=== PATIENT | female | born 1975 | race Caucasian/White ===

== ENCOUNTER 2021-06-13 17:39 | Emergency (ER) | payer BC, SELFPAY ==
[2021-06-13] VITALS (7 sets, daily range): BP systolic 110–164; BP diastolic 75–119; PULSE 104–127; RESP 16–22; TEMP 36.8; O2SAT 98–100; BMI 29.2
--- NOTE | 2021-06-13 18:18 | ECG_ITS ---
[facility] Test Date: 2021-06-13 Pat Name: Cassi Castillo Department: Room: Gender: Female Safety Director: : 1975 Requested By: Neo Laurent Order Number: [id number] Borges MD: Eli Terry M.D. Measurements Intervals [address] Rate: 121 P: 52 CA: 170 QRS: 64 QRSD: 85 T: 49 QT: 298 QTc: 423 Interpretive Statements SINUS TACHYCARDIA ABNORMAL RHYTHM ECG No previous ECG available for comparison Electronically Signed On 06-14-2021 17:26:08 CDT by Eli Terry M.D. [email or web address].[id number]
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
[2021-06-13] MEDS: sodium chloride 0.9% 1,000 ML 999 ML IV (18:55)
[2021-06-13 18:58] LABS: Basophils # 0.1 10^3/uL (0.0-0.1); Basophils % 0.7 %; Eosinophils # 0.1 10^3/uL (0.0-0.8); Eosinophils % 0.7 %; Hematocrit 40.7 % (37.0-47.0); Hemoglobin 13.3 g/dL (11.5-15.3); Lymphocytes # 2.3 10^3/uL (0.8-4.8); Lymphocytes % 21.8 %; Mean Corpuscular HGB Conc 32.7 g/dL (30.0-36.0); Mean Corpuscular Hemoglobin 29.8 pg (28.0-34.0); Mean Corpuscular Volume 91.1 fl (81-99); Mean Platelet Volume 9.9 fL (7.4-10.4); Monocytes # 0.7 10^3/uL (0.2-0.9); Monocytes % 7.2 %; Neutrophils # 7.13 10^3/uL (1.8-7.7); Nucleated Red Blood Cells % 0 %; Platelet Count 370 10^3/cmm (130-400); Red Blood Count 4.47 10^6/uL (4.1-5.3); Red Cell Distribution Width 13.5 % (12.1-15.1); White Blood Count 10.3 10^3/uL (4.0-10.0)
[2021-06-13 19:21] LABS: D Dimer 0.52 ug/mIFEU (0-0.59)
[2021-06-13 20:09] LABS: Anion Gap 14.6 (5-19); Blood Urea Nitrogen 17 mg/dL (6-20); Calcium 9.1 mg/dL (8.5-10.5); Carbon Dioxide 23 mmol/L (22-29); Chloride 105 mmol/L (98-107); Glomerular Filtration Rate 90.9 mL/min (90-130); Glucose 109 mg/dL (65-115); Magnesium 1.9 mg/dL (1.7-2.3); Osmolality Calculated 290 mOsm/kg (285-295); Potassium 3.6 mmol/L (3.5-5.1); Sodium 139 mmol/L (136-145); Thyroid Stimulating Hormone 1.66 uIU/mL (0.27-4.20)
[2021-06-13] MEDS: LORazepam 2 mg/mL INJ 1 mL 1 MG IVP (20:44)
[2021-06-13] MEDS: atenolol 50 mg Tablet 25 MG PO (22:48)
[2021-06-14 00:21] VITALS: BP 106/65; PULSE 83; RESP 20; O2SAT 96
== END 2021-06-14 00:22 | disposition home or self-care (01) ==
PROVIDERS: Emergency Provider Emergency Medicine
DX: R00.0 Tachycardia, unspecified (principal)
CPT/HCPCS: 36415; 80048; 83735; 84443; 85025; 85378; 93005; 99284; J2060; J7030